=== PATIENT | male | born 1975 | race Caucasian/White ===

== ENCOUNTER 2021-04-18 08:05 | Emergency (ER) | payer OTHER, SELFPAY ==
[2021-04-18 08:12] VITALS: BP 130/79; PULSE 104; RESP 20; TEMP 36.6; O2SAT 100
--- NOTE | 2021-04-18 08:17 | ED.ABDPAIN ---
HPI - Abdominal Pain General Chief Complaint: Abdominal Pain Stated Complaint: Nausea, Abdominal pain Time Seen by Provider: 04/18/21 08:21 Source: patient, RN notes reviewed and old records reviewed Mode of arrival: ambulatory Limitations: no limitations History of Present Illness HPI narrative: 46 year old male presents to express care with complaints of abdominal pain with nausea vomiting and diarrhea which started Sunday night after eating seafood and having a couple of alcohol beverages, denies any noted blood in emesis or stools. Patient states that has continued the weekend with last emesis at 11pm yesterday and last diarrhea yesterday afternoon. Patient states that he has had mid abdominal cramping at intervals since Sunday night. He states that he is unaware of having a fever but he did have chills Sunday. Patient has been able to keep some food down so far this morning with no abdominal pain. MD elicited complaint: abdominal pain Pertinent past history: other (GERD) Related Data Home Medications Medication Instructions Recorded Confirmed omeprazole 40 mg capsule,delayed 40 mg PO DAILY 09/17/20 04/18/21 release Allergies Allergy/AdvReac Type Severity Reaction Status Date / Time No Known Allergies Allergy Unknown Verified 10/05/20 10:06 Review of Systems Review of Systems: Narrative: CONSTITUTIONAL: Denies known fever, positive for chills or sweats. EYES: Denies visual changes, redness, or discharge. ENT: Chronic rhinorrhea,no acute congestion, sore throat, or otalgia. CARDIOVASCULAR: Denies chest pain, palpitations, or edema. RESPIRATORY: Denies cough or dyspnea. GASTROINTESTINAL: Mid abdominal cramping at intervals,positive for nausea, vomiting, or diarrhea. GENITOURINARY: Denies dysuria or hematuria. SKIN: Denies rash or itching. MUSCULOSKELETAL: Denies back pain, joint pain, or myalgia. NEUROLOGIC: Denies headache, numbness, or weakness. PSYCHIATRIC: Denies anxiety or depression. All systems reviewed & are unremarkable except as noted in HPI and below PMFSH Past Medical History Medical History (Updated 04/18/21 @ 09:31 by Jennifer Triana NP) GERD (gastroesophageal reflux disease) Surgical History Surgical History (Updated 04/18/21 @ 09:31 by Jennifer Triana NP) H/O removal of cyst S/P knee surgery S/P nasal surgery Family History Family History Sibling Diabetes mellitus Unknown Allergic Social History Social History (Updated 04/18/21 @ 08:38 by Jennifer Triana NP) Smoking status: Former smoker Additional smoking assessment comments: quit 14 years ago Alcohol intake: current Substance use: never Living arrangements: with family Gender identity (if verbalized by the patient): Male Comments At time of signature, agree with nursing past medical, surgical, social and family history. There is no relevant family history pertinent to the presenting complaint Exam Narrative: Exam Narrative: GENERAL: Well-appearing, well-nourished, and in no acute distress. HEAD: Normocephalic, atraumatic. EYES: PERRLA and EOMI. ENT: Nares clear, clear rhinorrhea no epistaxis. Mucous membranes moist.TM's normal with good light reflex, throat pink with no lesions or exudates, no tonsil enlargement. NECK: Supple. no lymphadenopathy CHEST: Clear to auscultation. No respiratory distress.SAO2 100% on room air HEART: Regular rate and rhythm. No murmur heard. Normal peripheral pulses. ABDOMEN: Soft, nontender to palpation, nondistended, normal active bowel sounds. negative McBurney point tenderness EXTREMITIES: Normal range of motion. No edema. SKIN: Warm, dry, no rash. NEURO: No focal deficits. Alert and oriented x3. Course Vital Signs Vital signs: Vital Signs Temperature 36.6 C 04/18/21 08:12 Pulse Rate 104 H 04/18/21 08:12 Respiratory Rate 20 04/18/21 08:12 Blood Pressure 130/79 04/18/21 08:12 Pulse Oximetry 100 07
== END 2021-04-18 08:45 | disposition home or self-care (01) ==
PROVIDERS: Emergency Provider Registered Nurse; PCP Family Medicine
DX: K52.9 Noninfective gastroenteritis and colitis, unspecified (principal); K21.9 Gastro-esophageal reflux disease without esophagitis; Z87.891 Personal history of nicotine dependence
CPT/HCPCS: 99213; G0463